=== PATIENT | male | born 1945 | race Caucasian/White ===

== ENCOUNTER 2016-10-24 15:34 | Emergency (ER) | payer MEDICARE, MEDICAID ==
[2016-10-24 16:02] VITALS: BP 142/87
--- NOTE | 2016-10-24 16:12 | UC ---
Skin Complaint HPI - HPI Summary HPI Summary: Red spot with growing round area L flank noticed first 3 days ago. It is very itchy. Reports similar lesion 1 year ago and was treated for lyme. Denies known tick bite, stings, exposure to poison bhavna, fevers, or joint aches. Area has grown a lot today. - History of Current Complaint Chief Complaint: UCSkin Time Seen by Provider: 10/24/16 15:38 Stated Complaint: TICK/BUG BITE Hx Obtained From: Patient Onset/Duration: Gradual Onset, Lasting Days Skin Exposure Onset/Duration: Days Ago Timing: Constant Onset Severity: Mild Current Severity: Mild Character: Swelling, Pruritus, Redness Aggravating: Touch Alleviating: Nothing Associated Signs & Symptoms: Positive: Rash - Allergy/Home Medications Allergies/Adverse Reactions: Allergies Allergy/AdvReac Type Severity Reaction Status Date / Time Penicillins Allergy Unknown Verified 10/24/16 15:40 Reaction Details enviromental Allergy Intermediate Coughing Uncoded 10/24/16 15:40 Review of Systems Constitutional: Negative Skin: Rash Eyes: Negative ENT: Negative Respiratory: Negative Cardiovascular: Negative Gastrointestinal: Negative Genitourinary: Negative Motor: Negative Neurovascular: Negative Musculoskeletal: Negative Neurological: Negative Psychological: Negative All Other Systems Reviewed And Are Negative: Yes PMH/Surg Hx/FS Hx/Imm Hx Previously Healthy: Yes - Surgical History Surgical History: None - Family History Known Family History: Positive: Cardiac Disease - Social History Lives: Alone Alcohol Use: None Substance Use Type: None Smoking Status (MU): Never Smoked Tobacco Physical Exam Triage Information Reviewed: Yes Appearance: Well-Appearing, No Pain Distress, Well-Nourished Vital Signs: Initial Vital Signs Temp 99.3 F 10/24/16 15:41 Pulse 98 10/24/16 15:41 Resp 18 10/24/16 15:41 BP 142/87 10/24/16 15:41 Pulse Ox 97 10/24/16 15:41 Vital Signs Reviewed: Yes Eye Exam: Normal Eyes: Positive: Conjunctiva Clear ENT Exam: Normal ENT: Positive: Normal ENT inspection, Hearing grossly normal, Pharynx normal, TMs normal. Negative: Tonsillar swelling, Tonsillar exudate Dental Exam: Other - edentulous Respiratory Exam: Normal Respiratory: Positive: Chest non-tender, Lungs clear, Normal breath sounds, No respiratory distress, No accessory muscle use Cardiovascular Exam: Normal Cardiovascular: Positive: RRR, No Murmur Musculoskeletal Exam: Normal Neurological Exam: Normal Neurological: Positive: Alert Psychological Exam: Normal Skin Exam: Other - 7cm x 10cm erythematous area L flank with 3cm x 2cm indurated , vesicular center. Lesion warm to touch. Course/Dx - Course Course Of Treatment: Skin rash does not have typical appearance of erythema migrans, pt has no hx of known tick bite, and the spot is very itchy. Because of this, the rash is most likely a hypersensitivity reaction. I discussed waiting for 2-3 days with pt and marked the borders of the lesion. If it is hypersensitivity it should stay the same or start to shrink in that time; EM would likely continue to grow, possibly with central clearing. Pt will monitor size at home and return in 2 days if symptoms are not resolving. - Differential Diagnoses - Skin Complaint Differential Diagnoses: Cellulitis, Drug Rash, Local Allergic Reaction, Poison Bhavna, Poison [place], Tick Born Illness - Diagnoses Provider Diagnoses: insect sting versus contact dermatitis on L flank Discharge - Discharge Plan Condition: Stable Disposition: HOME Patient Education Materials: Insect Bite or Sting (ED) Referrals: No Primary Care Phys,NOPCP [Primary Care Provider] - Additional Instructions: As we discussed, the swelling, redness, and itchiness of your spot strongly suggests a hypersensitivity reaction (such as with an insect or spider sting). If this is the case, the area should start to shrink on its own in the next couple days. I have made a [place] around the red area -- if it does not start to shrink by Friday, please return here for a recheck.
== END 2016-10-24 16:15 | disposition home or self-care (01) ==
LOC: UCCORT 15:34
DX: R21 Rash and other nonspecific skin eruption (principal); Z88.0 Allergy status to penicillin
CPT/HCPCS: 99211; G0463

== ENCOUNTER 2016-10-26 14:20 | Emergency (ER) | payer MEDICARE, MEDICAID ==
[2016-10-26 14:35] VITALS: BP 126/86
--- NOTE | 2016-10-26 14:59 | UC ---
Skin Complaint HPI - HPI Summary HPI Summary: Pt was seen here 10/24 for skin complaint & was not put on any abx. Reddened area to back was outlined on 10/24 and today, redness has spread past outline. He denies fevers/chills and body aches. He had something similar last year adn mehrdad abx he was given caused GI upset. There is no d/c, no streaks. Does not have a PCP. 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 - History of Current Complaint Chief Complaint: UCSkin Time Seen by Provider: 10/26/16 14:57 Stated Complaint: RECHECK SKIN COMPLAINT - Allergy/Home Medications Allergies/Adverse Reactions: Allergies Allergy/AdvReac Type Severity Reaction Status Date / Time Penicillins Allergy Unknown Verified 10/26/16 14:29 Reaction Details enviromental Allergy Intermediate Coughing Uncoded 10/26/16 14:29 Review of Systems Constitutional: Negative Skin: Rash Eyes: Negative ENT: Negative Respiratory: Negative Cardiovascular: Negative Gastrointestinal: Negative Genitourinary: Negative Motor: Negative Neurovascular: Negative Musculoskeletal: Negative Neurological: Negative Psychological: Negative All Other Systems Reviewed And Are Negative: Yes PMH/Surg Hx/FS Hx/Imm Hx Previously Healthy: Yes Cardiovascular History: Other - possible rheumatic heart disease Other Cardiovascular History: possible rheumatic heart disease - Surgical History Surgical History: None - Family History Known Family History: Positive: Cardiac Disease - Social History Alcohol Use: None Substance Use Type: None Smoking Status (MU): Never Smoked Tobacco Physical Exam Triage Information Reviewed: Yes Appearance: Well-Appearing, No Pain Distress, Well-Nourished - very pleasant Vital Signs: Initial Vital Signs Temp 98.0 F 10/26/16 14:30 Pulse 78 10/26/16 14:30 Resp 16 10/26/16 14:30 BP 126/86 10/26/16 14:30 Pulse Ox 98 10/26/16 14:30 Vital Signs Reviewed: Yes Eye Exam: Normal ENT Exam: Normal Neck exam: Normal Neck: Positive: Supple, Nontender, No Lymphadenopathy Respiratory: Positive: Lungs clear, Normal breath sounds, No respiratory distress, No accessory muscle use. Negative: Crackles, Rhonchi, Stridor, Wheezing Cardiovascular Exam: Normal Cardiovascular: Positive: RRR, No Murmur, Pulses Normal, Murmur:Sys:Grade _?_/ - I/ Abdominal Exam: Normal Abdomen Description: Positive: Nontender, Soft Musculoskeletal Exam: Normal Neurological Exam: Normal Psychological Exam: Normal Skin: Positive: Other - mid back with softball sized erythema, warm to touch with central small pustule. no active d/c. not fluctuant. not firm, not raised. no streaks. Course/Dx - Course Course Of Treatment: possible spider bite started sx. - Differential Diagnoses - Skin Complaint Differential Diagnoses: Abscess, Cellulitis, Contact Dermatitis - Diagnoses Provider Diagnoses: cellulitis Discharge - Discharge Plan Condition: Stable Disposition: HOME Prescriptions: Loratadine [Loratadine Allergy Relief] 10 mg PO DAILY #30 tab Sulfamethox/Trimethoprim DS* [Bactrim DS 800/160 TAB*] 1 tab PO DAILY #20 tab Patient Education Materials: Cellulitis (ED), Allergic Rhinitis (ED) Referrals: No Primary Care Phys,NOPCP [Primary Care Provider] - [facility] [Provider Group] Additional Instructions: You should call to schedule an appt to establish care with a primary care doctor. You can follow up here in 2 days for the cellulitis if you can't get in with a new primary care doctor. You should take a probiotic daily while on the antibiotic.
== END 2016-10-26 15:25 | disposition home or self-care (01) ==
LOC: UCCORT 14:20
DX: L03.312 Cellulitis of back [any part except buttock and flank] (principal); Z88.0 Allergy status to penicillin
CPT/HCPCS: 99212; G0463

== ENCOUNTER 2016-10-28 11:33 | Emergency (ER) | payer MEDICARE, MEDICAID ==
[2016-10-28 13:11] VITALS: BP 146/84
[2016-10-28] MEDS ORDERED: cefTRIAXone VIAL(*) 1,000 MG VIAL IM ONE (13:25)
--- NOTE | 2016-10-28 13:26 | ED ---
Skin Complaint - HPI Summary HPI Summary: Pt presents for recheck of skin c/o possible insect bite to left mid flank. Pt was seen on 10/26/16 and was put on bactrim Q daily and now presents with c/o worsening of erythema and tenderness. - History of Current Complaint Chief Complaint: UCSkin Time Seen by Provider: 10/28/16 12:58 Stated Complaint: RE CHECK- SPIDER BITE Hx Obtained From: Patient Hx From Patient Unobtainable Due To: Altered Mental Status Onset/Duration: Started Days Ago Skin Exposure Onset/Duration: Days Ago Timing: Constant Onset Severity: Mild Current Severity: Moderate Skin Location: Discrete - left side flank Character: Redness, Raised, Painful Aggravating Symptom(s): Touch Alleviating Symptom(s): Unknown Associated Signs & Symptoms: Tenderness Related History: Insect Bite/Sting - possible - Allergy/Home Medications Allergies/Adverse Reactions: Allergies Allergy/AdvReac Type Severity Reaction Status Date / Time Penicillins Allergy Intermediate Rash Verified 10/28/16 13:11 PMH/Surg Hx/FS Hx/Imm Hx Previously Healthy: Yes Musculoskeletal History: Reports: Hx Arthritis EENT History: Reports: Hx Seasonal Allergies Neurological History: Reports: Hx Transient Ischemic Attacks (TIA) Psychiatric History: Denies: Hx Anxiety, Hx Attention Deficit Hyperactivity Disorder, Hx Autism, Hx Eating Disorder, Hx Oppositional Randolph Disorder, Hx Depression, Hx Panic Disorder, Hx Post Traumatic Stress Disorder, Hx Inpatient Treatment, Hx Community Mental Health Tx, Hx Schizophrenia, Hx Bipolar Disorder, Hx Suicide Attempt, Hx of Violent Episodes Against Others, Hx Substance Abuse, Other Psychiatric Issues/Disorders - Cancer History Cancer Type, Location and Year: [place] 2012 Infectious Disease History: No Infectious Disease History: Denies: Hx Clostridium Difficile, Hx Hepatitis, Hx Human Immunodeficiency Virus (HIV), Hx of Known/Suspected MRSA, Hx Shingles, Hx Tuberculosis, Hx Known/ Suspected VRE, Hx Known/Suspected VRSA, History Other Infectious Disease, Traveled Outside the [place] in Last 30 Days - Family History Known Family History: Positive: Cardiac Disease - Social History Alcohol Use: None Substance Use Type: Reports: None Smoking Status (MU): Never Smoked Tobacco Review of Systems Constitutional: Negative Eyes: Negative ENT: Negative Cardiovascular: Negative Respiratory: Negative Gastrointestinal: Negative Genitourinary: Negative Musculoskeletal: Negative Skin: Other - erythema, tenderness Neurological: Negative Psychological: Normal All Other Systems Reviewed And Are Negative: Yes Physical Exam Triage Information Reviewed: Yes Vital Signs On Initial Exam: Initial Vitals Temp Pulse Resp BP Pulse Ox 99.2 F 73 16 146/84 95 10/28/16 13:00 10/28/16 13:00 10/28/16 13:00 10/28/16 13:00 10/28/16 13:00 Vital Signs Reviewed: Yes Appearance: Positive: Well-Appearing Skin: Positive: Warm, Tender, Weeping Skin/Lesions - of erythematous area. wounds unroofed and culture taken No drainage, Erythema @ - left flank measuring 20 cm in diameter Head/Face: Positive: Normal Head/Face Inspection Eyes: Positive: Normal ENT: Positive: Normal ENT inspection Neck: Positive: Supple, Nontender, No Lymphadenopathy Respiratory/Lung Sounds: Positive: Clear to Auscultation Cardiovascular: Positive: Normal Musculoskeletal: Positive: Normal Neurological: Positive: Normal Psychiatric: Positive: Normal Diagnostics - Vital Signs Vital Signs Temp Pulse Resp BP Pulse Ox 10/28/16 13:00 99.2 F 73 16 146/84 95 - Laboratory Lab Statement: Any lab studies that have been ordered have been reviewed, and results considered in the medical decision making process. Course/Dx - Differential Diagnoses - Skin Complaint Differential Diagnoses: Cellulitis, MRSA - Diagnoses Provider Diagnoses: Cellulitis Discharge - Discharge Plan Condition: Stable Disposition: HOME Prescriptions: Sulfamethox/Trimethoprim DS* [Bactrim DS 800/160 TAB*] 1 tab PO Q12H #20 tab Patient Education Materials: Cellulitis (ED) Referrals: [facility] [Outside] No Primary Care Phys,NOPCP [Primary Care Provider] - Additional Instructions: please take the prescribed medications every 8 hours with food and a probiotic. Also, is the erythema surrounding your area of complaint does nto improve or if you ntoice you havea fever or chills please seek care at the closest emergency department.
[2016-10-28] MEDS ORDERED: Lidocaine 1% MPF* 2 ML VIAL ONE (13:30)
== END 2016-10-28 13:55 | disposition home or self-care (01) ==
LOC: UCCORT 11:33
DX: L03.312 Cellulitis of back [any part except buttock and flank] (principal); J30.2 Other seasonal allergic rhinitis; Z86.73 Personal history of transient ischemic attack (TIA), and cerebral infarction without residual deficits; Z88.0 Allergy status to penicillin
CPT/HCPCS: 87070; 87205; 96372; 99212; G0463; J0696

== ENCOUNTER 2016-11-07 13:56 | Emergency (ER) | payer MEDICARE, MEDICAID ==
[2016-11-07 14:05] VITALS: BP 137/79
--- NOTE | 2016-11-07 14:37 | UC ---
UC General HPI - HPI Summary HPI Summary: complaint of rash on his back bit by a spider that started 3 weeks ago seen in urgent care -2 rounds of bactrim area of redness has gotten smaller- last dose of bactrim was 2 days ago still painful in the middle of red area very itchy and using warm compresses with some relief denies fever and chills not taking any medication for pain - History of Current Complaint Chief Complaint: UCSkin Stated Complaint: RE-CHECK SKIN Time Seen by Provider: 11/07/16 14:24 Hx Obtained From: Patient - Allergy/Home Medications Allergies/Adverse Reactions: Allergies Allergy/AdvReac Type Severity Reaction Status Date / Time Penicillins Allergy Intermediate Rash Verified 10/28/16 13:11 PMH/Surg Hx/FS Hx/Imm Hx Previously Healthy: Yes Cancer History: Prostate Cancer - Surgical History Surgical History: None - Family History Known Family History: Positive: Cardiac Disease - Social History Occupation: Employed Full-time Lives: With Family Alcohol Use: None Substance Use Type: None Smoking Status (MU): Never Smoked Tobacco Review of Systems Constitutional: Negative Skin: Rash ENT: Negative Respiratory: Negative Cardiovascular: Negative Gastrointestinal: Negative Genitourinary: Negative Motor: Negative Neurovascular: Negative Musculoskeletal: Negative Neurological: Negative Psychological: Negative All Other Systems Reviewed And Are Negative: Yes Physical Exam Triage Information Reviewed: Yes Appearance: No Pain Distress, Well-Nourished Vital Signs: Initial Vital Signs Temp 98.7 F 11/07/16 14:00 Pulse 71 11/07/16 14:00 Resp 16 11/07/16 14:00 BP 137/79 11/07/16 14:00 Pulse Ox 100 11/07/16 14:00 Vital Signs Reviewed: Yes Eyes: Positive: Conjunctiva Clear ENT: Positive: Pharynx normal, TMs normal Neck: Positive: No Lymphadenopathy Respiratory: Positive: Lungs clear, Normal breath sounds, No respiratory distress, No accessory muscle use Cardiovascular: Positive: RRR, No Murmur, Pulses Normal, Brisk Capillary Refill Abdomen Description: Positive: Nontender, Soft Bowel Sounds: Positive: Present Musculoskeletal: Positive: No Edema Neurological: Positive: Alert Psychological Exam: Normal Skin: Positive: rashes, Other - left back- 7 x 7 cm area of erythema - no area of induration Course/Dx - Course Course Of Treatment: exam completed. cellulitis improveing but not resolved. will change antibiotic to doxycycline - followup if no improvement. discussed improtance of getting a PCP - Differential Dx - Multi-Symptom Differential Diagnoses: Other - cellulitis, abscess Provider Diagnoses: cellulitis - back Discharge - Discharge Plan Condition: Stable Disposition: HOME Prescriptions: DOXYcycline CAP(*) [DOXYcycline 100MG CAP(*)] 100 mg PO BID #20 cap Patient Education Materials: Cellulitis (ED) Referrals: ERIN Rich [Primary Care Provider] - Additional Instructions: CELLULITIS What is Cellulitis? Cellulitis is a bacterial infection of the skin and, sometimes, of the tissues beneath the skin. The skin normally has many types of bacteria on it, but intact skin is an effective barrier that keeps bacteria from entering and growing within the body. When there is a break in the skin, bacteria can enter the body and grow there, causing infection. The infection usually affects outer layers of the skin first, and then spreads deeper into body tissues. Cellulitis can affect any area of the body covered by skin, but it is most common on the face or lower part of the legs. Symptoms Might Include: Skin redness that increases in size as the infection spreads Tight, glossy, "stretched" appearance of the skin Pain or tenderness of the area The affected area may be warm or hot to the touch A thin red line (along a vein) from the cellulitis toward the heart Fever Chills, shaking Muscle aches pains Joint stiffness because of swelling around a joint Treatment Recommendations: The healthcare provider may have prescribed an antibiotic medicine. The medicine should be taken until it is completely gone, even if you are feeling better. If you stop taking the medicine early, the infection may not be completely gone, and the medication may not work the next time. If the infection is on your arm or leg, keep it elevated. You may use warm, wet compresses to relieve the pain and help healing. Soak a clean cloth in warm water, wring it out a little, and apply it to the affected site. Leave the soak in place for 15 minutes and repeat often throughout the day. Rest until the fever is gone and the pain and redness have lessened.
== END 2016-11-07 14:53 | disposition home or self-care (01) ==
LOC: UCCORT 13:56
DX: L03.312 Cellulitis of back [any part except buttock and flank] (principal); Z88.0 Allergy status to penicillin; Z85.46 Personal history of malignant neoplasm of prostate
CPT/HCPCS: 99212; G0463

== ENCOUNTER 2017-07-23 11:09 | Emergency (ER) | payer MEDICARE, MEDICAID ==
[2017-07-23 12:19] VITALS: BP 115/78
--- NOTE | 2017-07-23 14:15 | UC ---
Throat Pain/Nasal Asim HPI - HPI Summary HPI Summary: Sore throat since yesterday. No fever or cough. He says it feels like prior episodes of strep throat. - History of Current Complaint Chief Complaint: UCRespiratory Stated Complaint: SORE THROAT Time Seen by Provider: 07/23/17 13:51 Hx Obtained From: Patient Onset/Duration: Gradual Onset, Lasting Days Severity: Moderate Pain Intensity: 5 Cough: None Associated Signs & Symptoms: Positive: Dysphagia. Negative: Sinus Discomfort, Nasal Discharge, Fever, Vomiting, Rash - Allergies/Home Medications Allergies/Adverse Reactions: Allergies Allergy/AdvReac Type Severity Reaction Status Date / Time Penicillins Allergy Intermediate Rash Verified 07/23/17 12:08 Home Medications: Home Medications Eucalyptus Oil/Menthol/Camphor [Vicks Vaporub Ointment] 50 gm TP QPM 07/23/17 [ History Confirmed 07/23/17] PMH/Surg Hx/FS Hx/Imm Hx Previously Healthy: No - strep throat. - Surgical History Surgical History: None - Family History Known Family History: Positive: Cardiac Disease - Social History Alcohol Use: None Substance Use Type: None Smoking Status (MU): Never Smoked Tobacco Review of Systems ENT: Sore Throat All Other Systems Reviewed And Are Negative: Yes Physical Exam Triage Information Reviewed: Yes Appearance: Well-Appearing, No Pain Distress, Well-Nourished Vital Signs: Initial Vital Signs Temp 99.2 F 07/23/17 12:11 Pulse 69 07/23/17 12:11 Resp 18 07/23/17 12:11 BP 115/78 07/23/17 12:11 Pulse Ox 98 07/23/17 12:11 Vital Signs Reviewed: Yes Eyes: Positive: Conjunctiva Clear ENT: Positive: Pharyngeal erythema, TMs normal, Uvula midline. Negative: Nasal congestion, Nasal drainage, TM bulging, TM dull, TM red, Tonsillar swelling, Tonsillar exudate, Trismus, Muffled voice, Hoarse voice, Sinus tenderness Neck: Positive: Supple, Nontender, No Lymphadenopathy Respiratory: Positive: Normal breath sounds, No respiratory distress, No accessory muscle use, Respiratory distress. Negative: Decreased breath sounds, Accessory muscle use, Crackles, Rhonchi, Stridor, Wheezing Cardiovascular: Positive: RRR, No Murmur, Pulses Normal Abdomen Description: Positive: Soft. Negative: Distended, Guarding Musculoskeletal: Positive: Strength Intact, ROM Intact, No Edema Neurological: Positive: Alert, Muscle Tone Normal. Negative: Fatigued Psychological: Positive: Normal Response To Family, Age Appropriate Behavior Skin: Negative: rashes Throat Pain/Nasal Course/Dx - Differential Dx/Diagnosis Provider Diagnoses: strep throat. Discharge - Discharge Plan Condition: Good Disposition: HOME Prescriptions: Cephalexin CAP* [Keflex CAP*] 500 mg PO TID #30 cap Patient Education Materials: Strep Throat (ED) Referrals: ERIN Rich [Primary Care Provider] -
== END 2017-07-23 14:16 | disposition home or self-care (01) ==
LOC: UCCORT 11:09
DX: J02.0 Streptococcal pharyngitis (principal)
CPT/HCPCS: 87651; 99212; G0463

== ENCOUNTER 2017-08-09 13:49 | Emergency (ER) | payer MEDICARE, MEDICAID ==
[2017-08-09 14:27] VITALS: BP 134/79
--- NOTE | 2017-08-09 14:53 | UC ---
Respiratory Complaint HPI - HPI Summary HPI Summary: 72 yo WM c/o dry cough associated with intermittent pleuritic CP x 1 week, denies sputum, f/c, just got over a strep throat last week and a course of taking abx- Keflex - History of Current Complaint Chief Complaint: UCRespiratory Stated Complaint: UPPER RESPIRATORY Time Seen by Provider: 08/09/17 14:36 Hx Obtained From: Patient Onset/Duration: Sudden Onset, Lasting Days Severity Initially: Moderate Severity Currently: Moderate Pain Intensity: 5 - Allergies/Home Medications Allergies/Adverse Reactions: Allergies Allergy/AdvReac Type Severity Reaction Status Date / Time Penicillins Allergy Intermediate Rash Verified 08/09/17 14:27 Home Medications: Home Medications Acetaminophen [Acetaminophen Extra Strength] 500 mg PO ONCE PRN 08/09/17 [ History Confirmed 08/09/17] PMH/Surg Hx/FS Hx/Imm Hx Previously Healthy: Yes - Surgical History Surgical History: None - Family History Known Family History: Positive: Cardiac Disease - Social History Alcohol Use: None Substance Use Type: None Smoking Status (MU): Never Smoked Tobacco Review of Systems Constitutional: Negative Skin: Negative Eyes: Negative ENT: Negative Respiratory: Cough - DRY Cardiovascular: Negative Gastrointestinal: Negative Genitourinary: Negative Motor: Negative Neurovascular: Negative Musculoskeletal: Negative Neurological: Negative Psychological: Negative All Other Systems Reviewed And Are Negative: Yes Physical Exam Triage Information Reviewed: Yes Vital Signs: Initial Vital Signs Temp 36.9 C 08/09/17 14:18 Pulse 93 08/09/17 14:18 Resp 16 08/09/17 14:18 BP 134/79 08/09/17 14:18 Pulse Ox 97 08/09/17 14:18 Eye Exam: Normal ENT Exam: Normal Dental Exam: Normal Neck exam: Normal Neck: Positive: 1 Respiratory Exam: Normal Cardiovascular Exam: Normal Abdominal Exam: Normal Musculoskeletal Exam: Normal Neurological Exam: Normal Psychological Exam: Normal Skin Exam: Normal UC Diagnostic Evaluation - Laboratory O2 Sat by Pulse Oximetry: 97 Respiratory Course/Dx - Differential Dx/Diagnosis Provider Diagnoses: viral bronchitis. URI Discharge - Discharge Plan Condition: Stable Disposition: HOME Prescriptions: Guaifenesin/Pseudo 600/60(NF) [Mucinex D 600/60 (NF)] 1 tab PO Q12H PRN 7 Days # 14 tab PRN Reason: Cough Patient Education Materials: Antitussive/Decongestant (By mouth), Acute Bronchitis (ED) Referrals: ERIN Rich [Primary Care Provider] - Additional Instructions: take medication as directed
== END 2017-08-09 14:56 | disposition home or self-care (01) ==
LOC: UCCORT 13:49
DX: J20.8 Acute bronchitis due to other specified organisms (principal); J06.9 Acute upper respiratory infection, unspecified; Z88.0 Allergy status to penicillin
CPT/HCPCS: 99212; G0463

== ENCOUNTER 2017-09-04 14:25 | Emergency (ER) | payer MEDICARE, MEDICAID ==
--- OUTSIDE RECORDS SUMMARY | 2017-09-04 14:36 | XMS REPORT ---
:1945 External Reference #:[id number] Author Organization [facility] Address [address], [address] [place] [address] Phone [phone] Care Team Providers Name Role Phone Fernando Avina, DAYNE Care Team Information Clinical Pharmacologist Unavailable Jesi Murdock FNP Primary Care Physician Unavailable Payers Type Date Identification Numbers Payment Provider Subscriber Medicare Primary Policy Number: [id number] Medicare Amador Balbuena PayID: [id number] [address] [place] [address] Medicaid Policy Number: [id number] Medicaid Amador Balbuena PayID: [id number] [address] [place] [address] Problems Date Description Provider Status Onset: 08/29/2017 Screening for malignant neoplasm Curtis Aldridge MD Active of colon Onset: 05/06/2013 Localized, primary osteoarthritis Ab Daniels M.D., Active FACS Family History Date Family Member(s) Problem(s) Comments General Non Contributory Social History Type Date Description Comments Marital Status Patient is Home Environment Lives With ex Occupation [employer] Semi-retired Work Status semi retired Cigarette Use Never Smoked Cigarettes Smokeless Tobacco Never Used Smokeless Tobacco ETOH Use Denies alcohol use Smoking Patient has never smoked Recreational Drug Use Denies Drug Use Daily Caffeine Patient consumes minimal amounts de caf tea, 1 cup daily of caffeine Allergies, Adverse Reactions, Alerts Date Description Reaction Status Severity Comments 05/06/2013 Penicillins active 05/06/2013 Codeine active 08/29/2017 Prednisone active Medications Medication Date Status Form Strength Qnty SIG Indications Ordering Provider Dulcolax 08/29/ Active Tablets DR 5mg 4tabs 4 tablets Z12.11 Curtis Aldridge, 2018 taken a 8pm MD the day before the procedure Suprep Bowel 08/29/ Active Solution 17.5-3.13- 1kit 05/27 Z12.11 Curtis Aldridge, Prep Kit 2018 1.6GM/180M afternoon MD Lew before and 1/2 in the morning of procedure. Ventolin HFA / Active Aerosol 108(90Base take 2 Unknown 0000 ) mcg/Act puffs every 6 hours as needed for shortness of breath. Sulindac 05/06/ Hx Tablets 200mg 40tabs 1 po bid Ab Yoder 2012 - Frances, 03/10/ Sherice, JACOB 2016 Aspirin / Hx Tablets DR 1 tab qd Unknown 0000 Medications Administered in Office Medication Date Status Form Strength Qnty SIG Indications Ordering Provider Euflexxa 2mL Administered Injection Andie S. prefilled 017 Grady, syringe RPAC Euflexxa 2mL Administered Injection Andie S. prefilled 017 Grady, syringe RPAC Euflexxa 2mL Administered Injection Andie S. prefilled 017 Grady, syringe RPAC Vital Signs Date Vital Result Comment 08/29/2017 BP Systolic Sitting Left Arm 110 mmHg BP Diastolic Sitting Left Arm 70 mmHg Heart Rate 90 /min Respiratory Rate 18 /min Height 68 inches 5'8" Weight 182.00 lb BMI (Body Mass Index) 27.7 kg/m2 BSA (Body Surface Area) 1.96 m2 [place] body weight in kilograms 70 03/10/2017 BP Systolic 135 mmHg BP Diastolic 85 mmHg Body Temperature 97.8 F Heart Rate 75 /min Height 68 inches 5'8" Weight 190.00 lb BMI (Body Mass Index) 28.9 kg/m2 BSA (Body Surface Area) 2.00 m2 [place] body weight in kilograms 70 05/06/2013 BP Systolic Sitting Left Arm 128 mmHg BP Diastolic Sitting Left Arm 74 mmHg Height 69 inches 5'9" Weight 181.00 lb BMI (Body Mass Index) 26.7 kg/m2 BSA (Body Surface Area) 1.98 m2 Results Description No Information Procedures Date CPT Code Description Status 03/24/2017 Asp./Injection major joint Completed 03/24/2017 Asp./Injection major joint Completed 03/10/2017 Asp./Injection major joint Completed 03/10/2017 28808 Asp./Injection major joint Completed 05/06/2013 24399 Radiology, Knee 3 Views Completed 05/06/2013 19886 Radiology, Knee 3 Views Completed Encounters Type Date Location Provider CPT E/M Dx Office Visit 08/29/2017 1:[place] [address] Z12.11 Office Visit 03/10/2017 11:00a Orthopaedic Office Andie Grady, [address] M17.0 [facility] M25.562 M25.561 Office Visit 05/06/2013 1:30p Orthopaedic Office Ab Daniels, [address] 719.46 Sherice, FACS 715.16 Plan of Care Future Appointment(s):09/23/2017 10:20 am - Curtis Alrdidge MD at GI08/29/2017 - Curtis Aldridge MDZ12.11 Encounter for screening for malignant neoplasm of colonNew Medication:Dulcolax 5 mgSuprep Bowel Prep Kit 17.5-3.13-1.6 GM/180MLNew Orders: ColonoscopyFollow up:F/U to be determined
[2017-09-04 14:41] VITALS: BP 142/71
--- NOTE | 2017-09-04 14:50 | UC ---
Abdominal Pain Male HPI - HPI Summary HPI Summary: Patient reports nausea vomiting and watery diarrhea beginning at 5 AM this morning. Patient states his grandson has similar symptoms as well. Patient denies fever. States he is urinating his usual amount. States the last meal he ate was dinner last evening - History of Current Complaint Chief Complaint: UCGI Stated Complaint: VOMITING, DIARRHEA Time Seen by Provider: 09/04/17 14:44 Hx Obtained From: Patient Onset/Duration: Sudden Onset, Lasting Days - 10 hours, Still Present Timing: Constant Severity Initially: Mild Severity Currently: Mild Location: Diffuse Radiates: No Character: Colicy, Cramping Aggravating Factor(s): Food Alleviating Factor(s): Other - Nothing by mouth Associated Signs And Symptoms: Positive: Decreased Appetite, Vomiting, Diarrhea - Allergies/Home Medications Allergies/Adverse Reactions: Allergies Allergy/AdvReac Type Severity Reaction Status Date / Time Penicillins Allergy Intermediate Rash Verified 09/04/17 14:35 codeine Allergy Palpitation Verified 09/04/17 14:35 s diphenhydramine Allergy Palpitation Verified 09/04/17 14:35 [From Benadryl] s prednisone Allergy "Caused a Verified 09/04/17 14:42 Mini-Stroke" Home Medications: Home Medications NK [No Home Medications Reported] 09/04/17 [History Confirmed 09/04/17] PMH/Surg Hx/FS Hx/Imm Hx Previously Healthy: Yes - Surgical History Surgical History: None - Family History Known Family History: Positive: Cardiac Disease - Social History Occupation: Retired Lives: With Family Alcohol Use: None Substance Use Type: None Smoking Status (MU): Never Smoked Tobacco Review of Systems Constitutional: Negative Skin: Negative Eyes: Negative ENT: Negative Respiratory: Negative Cardiovascular: Negative Gastrointestinal: Abdominal Pain, Vomiting, Diarrhea, Nausea Genitourinary: Negative Motor: Negative Neurovascular: Negative Musculoskeletal: Negative Neurological: Negative Psychological: Negative Is Patient Immunocompromised?: No All Other Systems Reviewed And Are Negative: Yes Physical Exam Triage Information Reviewed: Yes Appearance: Well-Appearing, No Pain Distress, Well-Nourished Vital Signs: Initial Vital Signs Temp 99.8 F 09/04/17 14:36 Pulse 106 09/04/17 14:36 Resp 20 09/04/17 14:36 BP 142/71 09/04/17 14:36 Pulse Ox 95 09/04/17 14:36 Vital Signs Reviewed: Yes Eye Exam: Normal Eyes: Positive: Conjunctiva Clear ENT Exam: Normal ENT: Positive: Normal ENT inspection, Hearing grossly normal, Pharynx normal, TMs normal, Uvula midline. Negative: Trismus, Muffled voice, Hoarse voice, Dental tenderness, Sinus tenderness Dental Exam: Normal Neck exam: Normal Neck: Positive: Supple, Nontender, No Lymphadenopathy Respiratory Exam: Normal Respiratory: Positive: Chest non-tender, Lungs clear, Normal breath sounds, No respiratory distress, No accessory muscle use Cardiovascular Exam: Normal Cardiovascular: Positive: No Murmur, Pulses Normal, Brisk Capillary Refill, Tachycardia Abdominal Exam: Normal Abdomen Description: Positive: No Organomegaly, Soft, Other: - diffuse discomfort. Negative: CVA Tenderness (R), CVA Tenderness (L) Bowel Sounds: Positive: Present Musculoskeletal Exam: Normal Musculoskeletal: Positive: Strength Intact, ROM Intact, No Edema Neurological Exam: Normal Neurological: Positive: Alert, Muscle Tone Normal Psychological Exam: Normal Skin Exam: Normal Abd Pain Male Course/Dx - Course Course Of Treatment: Patient will be discharged from urgent care to go directly to the [facility] emergency department for further evaluation of acute nausea vomiting and diarrhea - Differential Dx/Clinical Impression Provider Diagnoses: Acute nausea vomiting diarrhea Discharge - Sign-Out/Discharge Documenting (check all that apply): Discharge - Discharge Plan Condition: Guarded Disposition: HOME Patient Education Materials: Acute Abdominal Pain (DC) Referrals: ERIN Rich [Primary Care Provider] - Additional Instructions: Please report directly to the [facility] emergency department for comprehensive evaluation and assessment of your nausea vomiting and diarrhea - Billing Disposition and Condition Condition: GUARDED Disposition: HOME
== END 2017-09-04 14:56 | disposition home or self-care (01) ==
LOC: UCCORT 14:25
DX: R11.2 Nausea with vomiting, unspecified (principal); R19.7 Diarrhea, unspecified; Z88.0 Allergy status to penicillin; Z88.5 Allergy status to narcotic agent; Z88.8 Allergy status to other drugs, medicaments and biological substances
CPT/HCPCS: 99212; G0463

== ENCOUNTER 2019-03-03 18:20 | Emergency (ER) | payer MEDICARE, MEDICAID ==
[2019-03-03 18:50] VITALS: BP 147/78
--- NOTE | 2019-03-03 19:19 | UC ---
Throat Pain/Nasal Asim HPI - HPI Summary HPI Summary: 74-year-old male who has had a sore throat for one or 2 days. He states she's been around some other children that had strep and he would like tested for strep. He has no other complaints. - History of Current Complaint Chief Complaint: UCGeneralIllness Stated Complaint: ST Time Seen by Provider: 03/03/19 19:13 Hx Obtained From: Patient Onset/Duration: Gradual Onset Severity: Mild Pain Intensity: 2 Cough: None Associated Signs & Symptoms: Positive: Negative - Allergies/Home Medications Allergies/Adverse Reactions: Allergies Allergy/AdvReac Type Severity Reaction Status Date / Time Penicillins Allergy Intermediate Rash Verified 03/03/19 18:51 codeine Allergy Palpitation Verified 03/03/19 18:51 s diphenhydramine Allergy Palpitation Verified 03/03/19 18:51 [From Benadryl] s prednisone Allergy "Caused a Verified 03/03/19 18:51 Mini-Stroke" PMH/Surg Hx/FS Hx/Imm Hx Previously Healthy: Yes Cardiovascular History: Cardiac Disease - Surgical History Surgical History: None - Family History Known Family History: Positive: Cardiac Disease - Social History Occupation: Retired Alcohol Use: None Substance Use Type: None Smoking Status (MU): Never Smoked Tobacco Review of Systems All Other Systems Reviewed And Are Negative: Yes ENT: Positive: Sore Throat Is Patient Immunocompromised?: No Physical Exam Triage Information Reviewed: Yes Appearance: Well-Appearing, No Pain Distress, Well-Nourished Vital Signs: Initial Vital Signs Temp 99.1 F 03/03/19 18:48 Pulse 76 03/03/19 18:48 Resp 20 03/03/19 18:48 BP 147/78 03/03/19 18:48 Pulse Ox 97 03/03/19 18:48 Vital Signs Reviewed: Yes Eyes: Positive: Conjunctiva Clear ENT: Positive: Pharyngeal erythema - Minimal pharyngeal erythema., TMs normal, Uvula midline Neck: Positive: Supple, Nontender, No Lymphadenopathy Respiratory: Positive: Lungs clear, Normal breath sounds, No respiratory distress, No accessory muscle use Cardiovascular: Positive: RRR, No Murmur, Pulses Normal, Brisk Capillary Refill Musculoskeletal Exam: Normal Neurological Exam: Normal Psychological Exam: Normal Skin Exam: Normal Throat Pain/Nasal Course/Dx - Course Course Of Treatment: Rapid strep test: Negative Patient's with comfortable here. He can continue with increasing fluids, warm salt water gargles and throat lozenges as needed follow-up with his primary care provider as needed - Differential Dx/Diagnosis Provider Diagnosis: Pharyngitis Discharge ED - Sign-Out/Discharge Documenting (check all that apply): Patient Departure All imaging exams completed and their final reports reviewed: No Studies - Discharge Plan Condition: Good Disposition: HOME Patient Education Materials: Pharyngitis (ED) Referrals: No Primary Care Phys,NOPCP [Primary Care Provider] - [facility] [Outside] Additional Instructions: Increase fluids, warm saltwater gargles, throat lozenges. Definite follow-up with your primary care provider if no improvement in 3 or 4 days. - Billing Disposition and Condition Condition: GOOD Disposition: Home - Attestation Statements Provider Attestation: Per institutional requirements, I have reviewed the chart, however, I was not consulted specifically or made aware of this patient by the midlevel provider. I did not personally evaluate, interact with , or disposition this patient.
== END 2019-03-03 19:50 | disposition home or self-care (01) ==
LOC: UCCORT 18:20
DX: J02.9 Acute pharyngitis, unspecified (principal); Z88.0 Allergy status to penicillin; Z88.5 Allergy status to narcotic agent; Z88.8 Allergy status to other drugs, medicaments and biological substances
CPT/HCPCS: 87651; 99211; G0463

== ENCOUNTER 2020-07-18 12:15 | Inpatient (IN) ==
[2020-07-25] MEDS ORDERED: Lactated Ringers 1000 ml BAG 1,000 ML IV SCH (06:00)
[2020-07-25] MEDS ORDERED: Famotidine IV 10 MG/ML 2 ml VIAL (20 mg) IV ONE (06:00)
[2020-07-25] MEDS ORDERED: Buffered Lidocaine 1% SYRIN 1 ml INTRADERM ONE ×2 (06:00→11:15)
[2020-07-25] MEDS ORDERED: Midazolam 2 mg/2 ml VIAL 1 mg/ml 2 ml VIAL (2 mg) ONE ×2 (07:46→12:37)
[2020-07-25] MEDS ORDERED: Lidocaine 2% PF 5 ML VIAL ONE ×2 (07:50→12:37)
[2020-07-25] MEDS ORDERED: Phenylephrine IV 10 MG/ML 1 ml VIAL ONE (07:58)
[2020-07-25] MEDS ORDERED: Ondansetron 4 mg VIAL 2 MG/ML 2 ml VIAL ONE ×2 (08:00→12:37)
[2020-07-25] MEDS ORDERED: Clindamycin 900 MG/D5W BAG 900 MG/50 ML BAG IVPB ONE (11:14)
[2020-07-25] MEDS ORDERED: Famotidine IV 10 MG/ML 2 ml VIAL (20 mg) ONE (11:15)
[2020-07-25] MEDS ORDERED: ROPIVACAINE 5 MG/ML 30 ML BTL (0.5%) ONE ×2 (12:56→13:24)
[2020-07-25] MEDS ORDERED: fentaNYL 100 mcg/2 ml 50 MCG/ML VIAL ONE (12:58)
[2020-07-25] MEDS ORDERED: Propofol 10 mg/ml 100 ML BTL 100 ML ONE (13:13)
[2020-07-25] MEDS ORDERED: Ketamine HCL 50 mg/ml 10 ml VIAL (500 MG) ONE (13:16)
[2020-07-25] MEDS ORDERED: Naloxone 0.4 mg VIAL 0.4 mg/ml 1 ml VIAL IV PRN (13:37)
[2020-07-25] MEDS ORDERED: HYDROmorphone 1 MG/1 ML SYRINGE IV PRN (13:37)
[2020-07-25] MEDS ORDERED: fentaNYL 100 mcg/2 ml 50 MCG/ML VIAL IV PRN (13:37)
[2020-07-25] MEDS ORDERED: Prochlorperazine 5 mg/ml 2 ml VIAL (10 mg) IV PRN (13:37)
[2020-07-25] MEDS ORDERED: Ondansetron 4 mg VIAL 2 MG/ML 2 ml VIAL IV PRN (14:37)
[2020-07-25] MEDS ORDERED: diPHENhydraMINE 25 mg TAB PO PRN (14:37)
[2020-07-25] MEDS ORDERED: diPHENhydraMINE IV 50 MG/ML 1 ml VIAL (BENADRYL) IV PRN (14:37)
[2020-07-25] MEDS ORDERED: Lactulose 30 ml UDC PO PRN (14:37)
[2020-07-25] MEDS ORDERED: Ondansetron ODT 4 mg TAB 4 MG TAB PO PRN (14:37)
[2020-07-25] MEDS ORDERED: Magnesium Hydroxide LIQ 30 ML UDC PO PRN (14:37)
[2020-07-25] MEDS ORDERED: Morphine 2 MG/ML SYRINGE IV PRN (14:37)
[2020-07-25] MEDS ORDERED: Glycopyrrolate IV 0.2 MG/ML 1 ML VIAL ONE ×2 (14:59→15:12)
[2020-07-25] MEDS: Lactated Ringers 1000 ml BAG 1,000 ML IV SCH (18:56)
[2020-07-25] MEDS ORDERED: Lactated Ringers 500 ml BAG 500 ML IV ONE (21:08)
[2020-07-25] MEDS: Magnesium Hydroxide LIQ 30 ML UDC PO SCH (21:08)
[2020-07-25] MEDS: Clindamycin 600 MG/D5W BAG 600 MG/50 ML BAG IV SCH (22:20)
[2020-07-26] MEDS: Lactated Ringers 1000 ml BAG 1,000 ML IV SCH ×3 (00:09→21:39)
[2020-07-26] MEDS ORDERED: Lactated Ringers 500 ml BAG 500 ML IV ONE (04:46)
[2020-07-26] MEDS ORDERED: Iohexol 350 (CONTRAST) 500 ML MDV IV ONE (05:13)
[2020-07-26] MEDS: Clindamycin 600 MG/D5W BAG 600 MG/50 ML BAG IV SCH ×2 (05:59→13:51)
[2020-07-26 06:00] LABS: ABS Lymphocytes 0.9 10^3/ul (1.0-4.8); ABS Monocytes 0.7 10^3/ul (0-0.8); ABS Neutrophils 8.5 10^3/ul (1.5-7.7); Hematocrit 39 % (42-52); Hemoglobin 12.9 g/dL (14.0-18.0); Lymphocyte % 8.5 %; Mean Corpuscular HGB Conc 33 g/dL (31-36); Mean Corpuscular Hemoglobin 29 pg (27-31); Mean Corpuscular Volume 86 fL (80-94); Mean Platelet Volume 8.3 fL (7.4-10.4); Platelet Count 163 10^3/uL (150-450); Red Blood Count 4.47 10^6 /uL (4.18-5.48); Red Cell Distribution Width 14 % (10-15); White Blood Count 10.1 10^3/uL (3.5-10.8)
[2020-07-26 06:14] LABS: Anion Gap 7 mmol/L (2-11); BUN/Creatinine Ratio 16.7 (8-20); Blood Urea Nitrogen 20 mg/dL (6-24); CO2 Carbon Dioxide 21 mmol/L (22-32); Calcium 8.3 mg/dL (8.6-10.3); Chloride 105 mmol/L (101-111); EGFR African American 71.4 (>60); Glucose 144 mg/dL (70-100); Potassium 4.6 mmol/L (3.5-5.0); Sodium 133 mmol/L (135-145)
[2020-07-26] MEDS ORDERED: Iodixanol (CONTRAST) 320 MG/ML 100 ML SDV IV ONE (10:38)
[2020-07-26 10:42] LABS: Cholesterol 113 mg/dL; LDL Cholesterol 51 mg/dL; Triglycerides 50 mg/dL
[2020-07-26 11:03] LABS: Activated Partial Thrombo Time 27.1 seconds (26.0-38.0); INR 1.25 (0.82-1.09)
[2020-07-26 11:04] LABS: Troponin I 0.03 ng/mL (<0.03)
[2020-07-26 11:14] LABS: Troponin I 0.03 ng/mL (<0.03)
[2020-07-26 11:29] LABS: Magnesium 1.6 mg/dL (1.9-2.7)
[2020-07-26] MEDS: Vitamin THERAPEUTIC TAB PO SCH (12:17)
[2020-07-26] MEDS: Magnesium Hydroxide LIQ 30 ML UDC PO SCH ×2 (12:18→21:40)
[2020-07-26 12:46] LABS: Urine Appearance Clear; Urine Bilirubin Negative (Negative); Urine Blood 1+ (Negative); Urine Color Yellow; Urine Glucose 1+(50 mg/dL) (Negative); Urine Ketones Negative (Negative); Urine Nitrite Negative (Negative); Urine Protein Negative (Negative); Urine Specific Gravity 1.031 (1.010-1.030); Urine Urobilinogen Negative (Negative)
[2020-07-26 12:48] LABS: Urine Bacteria Absent (Absent); Urine Red Blood Cell Trace(0-2/hpf) (Absent); Urine White Blood Cell Trace(0-5/hpf) (Absent)
[2020-07-27 05:48] LABS: Hematocrit 34 % (42-52); Hemoglobin 11.5 g/dL (14.0-18.0); Mean Platelet Volume 8.2 fL (7.4-10.4); Platelet Count 143 10^3/uL (150-450)
[2020-07-27] MEDS: Vitamin THERAPEUTIC TAB PO SCH (07:35)
[2020-07-27] MEDS: Lactated Ringers 1000 ml BAG 1,000 ML IV SCH (07:39)
[2020-07-27] MEDS: Magnesium Hydroxide LIQ 30 ML UDC PO SCH ×2 (07:40→20:52)
[2020-07-27 09:24] LABS: BUN/Creatinine Ratio 13.3 (8-20); Calcium 8.4 mg/dL (8.6-10.3); EGFR African American 83.3 (>60); EGFR Non-African American 68.9 (>60); Magnesium 1.9 mg/dL (1.9-2.7)
[2020-07-28 05:11] LABS: Hematocrit 32 % (42-52); Hemoglobin 10.8 g/dL (14.0-18.0); Platelet Count 163 10^3/uL (150-450)
[2020-07-28] MEDS: Magnesium Hydroxide LIQ 30 ML UDC PO SCH ×2 (08:35→19:47)
[2020-07-28] MEDS: Vitamin THERAPEUTIC TAB PO SCH (08:36)
[2020-07-29 06:03] LABS: Hematocrit 28 % (42-52); Hemoglobin 9.7 g/dL (14.0-18.0); Mean Platelet Volume 8.2 fL (7.4-10.4); Platelet Count 183 10^3/uL (150-450)
[2020-07-29] MEDS: Vitamin THERAPEUTIC TAB PO SCH (09:09)
[2020-07-29] MEDS: Magnesium Hydroxide LIQ 30 ML UDC PO SCH ×3 (09:10→19:51)
[2020-07-30 06:08] LABS: Hematocrit 28 % (42-52); Hemoglobin 9.5 g/dL (14.0-18.0); Mean Platelet Volume 7.7 fL (7.4-10.4); Platelet Count 199 10^3/uL (150-450)
[2020-07-30 06:21] LABS: BUN/Creatinine Ratio 21.7 (8-20); Calcium 8.3 mg/dL (8.6-10.3); EGFR African American 71.4 (>60)
[2020-07-30] MEDS: Vitamin THERAPEUTIC TAB PO SCH (08:13)
[2020-07-30] MEDS: Magnesium Hydroxide LIQ 30 ML UDC PO SCH ×2 (08:14→19:50)
[2020-07-30] MEDS ORDERED: NS 0.9% 500 ml BAG 500 ML IV ONE (14:50)
[2020-07-31 06:09] LABS: ABS Eosinophils 0.2 10^3/ul (0-0.6); ABS Monocytes 0.5 10^3/ul (0-0.8); ABS Neutrophils 5.8 10^3/ul (1.5-7.7); Eosinophil % 2.4 %; Hematocrit 30 % (42-52); Mean Corpuscular HGB Conc 33 g/dL (31-36); Mean Corpuscular Hemoglobin 28 pg (27-31); Mean Corpuscular Volume 85 fL (80-94); Mean Platelet Volume 8.1 fL (7.4-10.4); Platelet Count 252 10^3/uL (150-450); Red Blood Count 3.54 10^6 /uL (4.18-5.48); Red Cell Distribution Width 14 % (10-15); White Blood Count 7.5 10^3/uL (3.5-10.8)
[2020-07-31 06:33] LABS: BUN/Creatinine Ratio 17.6 (8-20); Calcium 8.5 mg/dL (8.6-10.3); EGFR African American 86.2 (>60); EGFR Non-African American 71.2 (>60); Potassium 4.3 mmol/L (3.5-5.0)
[2020-07-31] MEDS: Vitamin THERAPEUTIC TAB PO SCH (08:50)
[2020-07-31] MEDS: Magnesium Hydroxide LIQ 30 ML UDC PO SCH ×2 (08:50→21:02)
[2020-08-01] MEDS: Vitamin THERAPEUTIC TAB PO SCH (10:03)
[2020-08-01 10:05] VITALS: BP 130/70
[2020-08-01] MEDS: Magnesium Hydroxide LIQ 30 ML UDC PO SCH (10:07)
== END 2020-08-01 11:33 | DRG 469 ==
LOC: INTOOBSV 07-25 11:02 → AA 07-25 11:02 → SSU 07-25 18:37 → MEDTELE 07-26 09:39
PROVIDERS: ADMIT Orthopaedic Surgery Adult Reconstructive Orthopaedic Surgery; ATTEND Orthopaedic Surgery Adult Reconstructive Orthopaedic Surgery